=== PATIENT | male | born 2005 | race Hispanic/Latino ===

== ENCOUNTER 2025-05-28 02:03 | Emergency (ER) | payer OTHER ==
[~2025-05-28] VITALS: Ht 177.8 cm; Wt 80.0 kg
[2025-05-28 02:55] LABS: BASO # 0.0 10^3/uL (0.0-0.2); BASO % 0.4 % (0.0-1.0); EOS # 0.1 10^3/uL (0.0-0.5); EOS % 2.1 % (0.0-3.0); LYMPH # 1.6 10^3/uL (1.5-5.0); LYMPH % 33.3 % (24.0-44.0); MONO # 0.4 10^3/uL (0.0-0.8); MONO % 8.7 % (2.0-8.0); NEUTROPHILS # 2.6 10^3/uL (1.5-8.5); NEUTROPHILS % 55.3 % (36.0-66.0); PLATELET COUNT, AUTOMATED 152 10^3/uL (150-450)
[2025-05-28 03:29] LABS: ALT/SGPT 14 U/L (7.0-40); AST/SGOT 17 U/L (<34); CALCIUM LEVEL 9.0 MG/DL (8.5-10.1); CARBON DIOXIDE LEVEL 28 MMOL/L (20-31); CHLORIDE LEVEL 103 MMOL/L (98-107); CREATININE FOR GFR 0.76 MG/DL (0.70-1.30); GLOMERULAR FILTRATION RATE > 90.0 (>60); POTASSIUM SERUM 3.7 MMOL/L (3.5-5.1); SODIUM LEVEL 140 MMOL/L (136-145)
[2025-05-28 10:47] VITALS: BP 115/66; TEMP 98; O2SAT 99
== END 2025-05-28 10:49 | disposition home or self-care (01) ==
LOC: M ED 02:03
DX: R55 Syncope and collapse (principal); I47.10 Supraventricular tachycardia, unspecified; K59.00 Constipation, unspecified

== ENCOUNTER → 2025-08-16 | Outpatient (CLI) | payer OTHER | LOC: M RAD 10:24 | DX: R42 Dizziness and giddiness (principal) ==